=== PATIENT | female | born 1990 | race Caucasian/White ===

== ENCOUNTER 2021-07-26 19:55 | Emergency (ER) | payer OTHER ==
[~2021-07-26] VITALS: Ht 160 cm; Wt 86.2 kg
[2021-07-26 20:05] VITALS: BP 107/73
--- NOTE | 2021-07-26 20:05 | NUR ---
TO [facility]ENT AMBULATORY
[2021-07-26 20:22] VITALS: BP 107/73
--- NOTE | 2021-07-26 20:55 | NUR ---
SEEN AND EXAMINED BY JADA
--- NOTE | 2021-07-26 21:00 | NUR ---
SWAB FOR NOVEL SENT TO LAB
--- NOTE | 2021-07-26 21:05 | NUR ---
Patient discharged with v/s stable. Written and verbal after care instructions given and explained. Patient verbalized understanding. Ambulatory with steady gait. All questions addressed prior to discharge. Advised to follow up with PMD.
== END 2021-07-26 21:05 | disposition home or self-care (01) ==
LOC: MED 19:55
DX: R05 Cough (principal); R06.02 Shortness of breath; R43.9 Unspecified disturbances of smell and taste; R09.89 Other specified symptoms and signs involving the circulatory and respiratory systems; Z20.822 Contact with and (suspected) exposure to COVID-19
CPT/HCPCS: 99283; U0003